=== PATIENT | female | born 1995 | race Caucasian/White ===

== ENCOUNTER → 2018-04-20 10:27 | Outpatient (REF) | payer OTHER, SELFPAY ==
[2018-04-20 10:37] LABS: Add Manual Diff / Slide Review NO; Basophils Percent Auto 0.4 % (0-2); Eosinophils Percent Auto 0.4 % (2-4); Hematocrit 37.3 % (36-46); Hemoglobin 12.6 g/dL (12.0-16.0); Lymphocytes Percent Auto 36.7 % (25-40); Mean Corpuscular HGB Conc 33.9 % (30-36); Mean Corpuscular Hemoglobin 31.3 PG (26-34); Mean Corpuscular Volume 92.4 fL (80-100); Monocytes Percent Auto 5.2 % (3-14); Neutrophils Absolute Auto 5000 /uL (3000-5900); Neutrophils Percent Auto 57.3 % (50-75); Platelet Count 347 X10^3/uL (150-400); Red Blood Cell Count 4.03 X10^6/uL (4.0-5.2); Red Cell Distribution Width 20.7 % (11.6-14.8); White Blood Cell Count 8.7 X10^3/uL (4.5-11.0)
[2018-04-20 10:52] LABS: Erythrocyte Sedimentation Rate 6 MM/HR (0-20)
[2018-04-20 11:14] LABS: Alanine Aminotransferase 25 IU/L (9-52); Albumin Globulin Ratio 1.4 (1.0-2.8); Alkaline Phosphatase 43 U/L (38-126); Aspartate Aminotransferase 18 IU/L (14-36); BUN Creatinine Ratio 15.7 (6-22); Bilirubin Total 0.5 mg/dL (0.2-1.3); Calcium 9.5 mg/dL (8.4-10.2); Estimated Glomerular Filt Rate > 60.0 mL/min (>60); Globulin 2.9 g/dL (1.7-4.1); Glucose 68 mg/dL (70-100); HEMOLYSIS < 15 (0-50); Potassium 4.2 mmol/L (3.4-5.1); Sodium 142 mmol/L (137-145); Total Protein 6.9 g/dL (6.3-8.2)
[2018-04-20 11:15] LABS: C-Reactive Protein Quant < 0.5 mg/dL (<1.0)
[2018-04-20 11:29] LABS: RBC Morphology Normal Morphology
== END ==
LOC: LAB 10:27
PROVIDERS: Visit Provider Internal Medicine Gastroenterology
DX: K51.011 Ulcerative (chronic) pancolitis with rectal bleeding (principal)
CPT/HCPCS: 80053; 85025; 85651; 86140

== ENCOUNTER 2018-06-07 09:51 | Day surgery (SDC) | payer OTHER, SELFPAY ==
[2018-06-07] VITALS (8 sets, daily range): BP systolic 91–129; BP diastolic 58–81; PULSE 63–97; RESP 14–17; TEMP 36.2–36.7; O2SAT 93–100; BMI 23.9
[2018-06-07] MEDS: SODIUM CHLORIDE 0.9% 1,000 ML 70 ML IV (10:23)
--- NOTE | 2018-06-07 10:34 | PM.HP.1 ---
History of Present Illness Date Patient Seen: 06/07/18 Chief complaint: flex sigmoidoscopy [id number] Narrative: The patient is a 22-year-old female with a history of panulcerative colitis who I had recently seen on 05/11/2018 for follow-up. The patient is here for disease activity assessment in her rectosigmoid colon. She is currently on azathioprine, budesonide, and Vedolizumab. She currently has no new complaints. Fecal calprotectin May 29, 2018 normal Patient History Family & Social History Social History: household members family Meds Home Medications Medication Instructions Recorded Confirmed Type azathioprine 150 mg PO DAILY 06/07/18 06/07/18 History budesonide 6 mg PO DAILY 06/07/18 06/07/18 History bupropion HCl [Wellbutrin SR] 150 mg PO DAILY 06/07/18 06/07/18 History levonorgestrel-ethinyl estrad 1 tab PO DAILY 06/07/18 06/07/18 History [Jolessa] vedolizumab [Entyvio] 300 mg IV Q8W 06/07/18 06/07/18 History Allergies Allergy/AdvReac Type Severity Reaction Status Date / Time amoxicillin [From AUGMENTIN] Allergy Unknown Verified 06/07/18 10:10 clavulanic acid Allergy Unknown Verified 06/07/18 10:10 [From AUGMENTIN] gluten [GLUTEN] AdvReac Intermediate Verified 06/07/18 10:10 Review of Systems Review of Systems All systems reviewed & are unremarkable except as noted in HPI and below Exam Vital Signs (past 8 hours): - 06/07/18 10:14 Temperature 97.2 F L Pulse Rate 76 Respiratory Rate 17 Blood Pressure 129/81 H Pulse Oximetry 97 Oxygen Delivery Method Room Air Assessment & Plan Plan: Assessment/Plan Narrative: The patient is a 22-year-old female with panulcerative colitis who is here for disease activity assessment of her rectosigmoid colon. This will determine further management options Regarding the procedure(s), the risks and potential complications, benefits, and alternatives (including not doing the procedure) were discussed with the patient. The risks include but are not limited to bleeding, infection, perforation which may require surgical intervention, missed lesions, and adverse reactions to sedative medicines. After a question and answer period, the patient agreed to proceed with the procedure(s).
--- NOTE | 2018-06-07 11:11 | P.OP.ENDO_ITS ---
Operative Date/Time/Diagnoses Date of procedure: 06/07/18 Time of procedure: 11:10 Procedure Notes Procedure in detail: Surgeon: Abhishek Thomas MD Procedure: Flexible sigmoidoscopy Preoperative diagnosis: Ulcerative pancolitis Postoperative diagnosis: Diffuse colitis from anal verge up to 30 cm proximal to the anal verge; approximately 2-3 cm patchy colitis in area of splenic flexure Medications: Conscious sedation using 12 mg IV of Midazolam and 150 mcg IV of Fentanyl Preanesthesia Assessment An H and P was performed/updated and the Px?s ASA class is 2. The procedure was discussed in detail with the patient. The potential risks and complications including infection, bleeding, missed lesions, perforation, need for surgery in case of perforation, prolonged hospital stay, and were explained. A brief question and answer period was allotted and once all questions were answered, informed consent was obtained. The patient was brought back to the procedure room and placed on standard monitoring. The patient?s vital signs were monitored continuously throughout the entire procedure. Prior to starting, a timeout was performed to confirm the patient?s identity, allergies, medications, and procedure. Procedure in detail The patient was placed in left lateral decubitus position and once adequate sedation was obtained a PROSPER was performed. The digital rectal examination did not reveal any palpable lesions. The tip of the colonoscope was inserted into the anal canal. There was note of moderate diffuse inflammation from the anal verge all the way to 30 cm from the anal verge. Proximal to the sigmoid colon there was note of normal appearing mucosa with few pseudopolyps. In the area of the splenic flexure there was a 2-3 cm segmental area of patchy moderate inflammation. The transverse colon appeared without abnormality and there was note of solid stool in the proximal transverse colon. The remainder of the proximal colon was not visualized. The patient tolerated the procedure well and will be brought back to the recovery area to be discharged once criteria are met. The prep was judged to be good/excellent and adequate to identify polyps less than 5 mm. The total procedure time from initial sedation was 19 min. Complications There were no complications and estimated blood loss was minimal. Recommendations: Consider re-evaluation by Dr. Wilson at [facility] to discuss possible changes to her regimen (Xeljanz) Resume previous diet Continue outPx medications including budesonide, azathioprine, and vedolizumab Office follow up with me after she has seen Dr. Wilson An emergency contact number was given to the patient for any complications related to the procedure
--- NOTE | 2018-06-07 11:11 | PM.DS.1 ---
History of Present Illness Chief complaint: flex sigmoidoscopy [id number] Narrative: The patient is a 22-year-old female with a history of panulcerative colitis who I had recently seen on 05/11/2018 for follow-up. The patient is here for disease activity assessment in her rectosigmoid colon. She is currently on azathioprine, budesonide, and Vedolizumab. She currently has no new complaints. Fecal calprotectin May 29, 2018 normal Discharge Providers Discharge provider: Abhishek Thomas MD Exam Vital Signs (past 8 hours): - 06/07/18 10:14 Temperature 97.2 F L Pulse Rate 76 Respiratory Rate 17 Blood Pressure 129/81 H Pulse Oximetry 97 Oxygen Delivery Method Room Air Narrative Exam Narrative: General: Patient is well developed, not in apparent distress Cardiovascular: Regular rate and rhythm, no murmurs, rubs, or gallops; no evidence of edema; no palpable abdominal aortic aneurysm Gastrointestinal: Normoactive bowel sounds, soft, nontender, nondistended, no rebound tenderness, no hepatosplenomegaly, no evidence of hernia Discharge Plan Discharge Plan Patient Disposition: Home, Self-Care Discharge comment: Remove IV prior to discharge Discharge to home once criteria are met (positive flatus, stable vital signs, no abdominal pain, tolerating p.o.) Discharge Med Rec/Prescriptions Prescriptions: Continue bupropion HCl [Wellbutrin SR] 150 mg Tablet Extended Release 12 Hr 150 mg PO DAILY RF: 0 azathioprine 50 mg Tablet 150 mg PO DAILY RF: 0 budesonide 3 mg Capsule,Delayed,Extend.Release 6 mg PO DAILY RF: 0 levonorgestrel-ethinyl estrad [Jolessa] 0.15 mg-30 mcg Tablets,Dose Pack,3 Month 1 tab PO DAILY RF: 0 vedolizumab [Entyvio] 300 mg Recon Soln 300 mg IV Q8W RF: 0 Discharge Orders: Discharge (Order); Ordered 06/07/18 Ordered By: Abhishek Thomas Provider Discharge Instructions Diet: Diet as Tolerated Visit Report/Discharge Packet Stand Alone Forms: Surgery Discharge Discharge Data Attending Provider: Abhishek Thomas
[2018-06-07] MEDS: MIDAZOLAM 5 MG/5 ML VIAL IV (11:20)
[2018-06-07] MEDS: fentaNYL 250 MCG/5 ML INJ IV (11:21)
== END 2018-06-07 11:24 | disposition home or self-care (01) ==
PROVIDERS: Visit Provider Internal Medicine Gastroenterology
PROC: 0DJD8ZZ Inspection of Lower Intestinal Tract, Via Natural or Artificial Opening Endoscopic (ICD-10-PCS; CPT 45378; principal; 2018-06-07 11:00)
DX: K51.00 Ulcerative (chronic) pancolitis without complications (principal)
CPT/HCPCS: 45330; J2250; J3010

== ENCOUNTER → 2018-06-13 17:00 | Outpatient (REF) | payer OTHER, SELFPAY ==
[2018-06-13 17:18] LABS: Add Manual Diff / Slide Review NO; Basophils Percent Auto 0.1 % (0-2); Hemoglobin 11.9 g/dL (12.0-16.0); Lymphocytes Percent Auto 4.4 % (25-40); Mean Corpuscular Hemoglobin 32.2 PG (26-34); Mean Corpuscular Volume 94.7 fL (80-100); Neutrophils Absolute Auto 6700 /uL (3000-5900); Neutrophils Percent Auto 94.5 % (50-75); Platelet Count 320 X10^3/uL (150-400); Red Cell Distribution Width 15.1 % (11.6-14.8); White Blood Cell Count 7.1 X10^3/uL (4.5-11.0)
[2018-06-13 17:23] LABS: Alanine Aminotransferase 15 IU/L (9-52); Albumin 3.7 g/dL (3.5-5.0); Albumin Globulin Ratio 1.4 (1.0-2.8); Alkaline Phosphatase 41 U/L (38-126); Aspartate Aminotransferase 14 IU/L (14-36); BUN Creatinine Ratio 13.3 (6-22); Bilirubin Total 0.2 mg/dL (0.2-1.3); Blood Urea Nitrogen 8 mg/dL (7-17); Calcium 9.2 mg/dL (8.4-10.2); Carbon Dioxide 23 mmol/L (22-32); Chloride 106 mmol/L (98-107); Creatine Kinase 37 U/L (30-135); Estimated Glomerular Filt Rate > 60.0 mL/min (>60); Globulin 2.6 g/dL (1.7-4.1); Glucose 118 mg/dL (70-100); HEMOLYSIS < 15 (0-50); Potassium 4.4 mmol/L (3.4-5.1); Sodium 141 mmol/L (137-145); Total Protein 6.3 g/dL (6.3-8.2)
[2018-06-13 18:12] LABS: Erythrocyte Sedimentation Rate 10 MM/HR (0-20)
== END ==
LOC: LAB 17:00
PROVIDERS: Visit Provider Internal Medicine Gastroenterology
DX: K51.011 Ulcerative (chronic) pancolitis with rectal bleeding (principal)
CPT/HCPCS: 80053; 82550; 85025; 85651

== ENCOUNTER → 2018-10-26 12:23 | Outpatient (REF) | payer OTHER, SELFPAY | LOC: LAB 12:23 | PROVIDERS: Visit Provider Nurse Practitioner Family | DX: N39.0 Urinary tract infection, site not specified (principal) | CPT/HCPCS: 87077; 87086; 87186 ==